=== PATIENT | male | born 1990 | race Caucasian/White ===

== ENCOUNTER 2019-04-11 16:02 | Emergency (ER) | payer SELFPAY ==
[~2019-04-11] VITALS: Ht 167.6 cm; Wt 72.7 kg
[2019-04-11] MEDS ORDERED: ALPRAZolam 0.5 MG TABLET PO ONE (17:15)
[2019-04-11] MEDS ORDERED: BUPIVACAINE HCL/PF 0.25% 10 ML VIAL INJ ONE (18:45)
[2019-04-11] MEDS ORDERED: LIDOCAINE 1% 10 ML VIAL INJ ONE (18:45)
[2019-04-11] MEDS ORDERED: CefTRIAXone SODIUM 1 GM/VIAL IM ONE (19:00)
[2019-04-11] MEDS ORDERED: LIDOCAINE/PF 1% 2 ML VIAL IM ONE (19:00)
[2019-04-11] MEDS ORDERED: POVIDONE-IODINE 10% 15 ML SOLUTION UD TP ONE (19:00)
[2019-04-11 19:50] VITALS: BP 134/67
== END 2019-04-11 20:13 | disposition home or self-care (01) ==
LOC: EMS 16:02
DX: L03.012 Cellulitis of left finger (principal); R03.0 Elevated blood-pressure reading, without diagnosis of hypertension
CPT/HCPCS: 10160; 73140; 87070; 87077; 87186; 87205; 99284; J0696; J3490 ×2